=== PATIENT | female | born 1960 | race Caucasian/White ===

== ENCOUNTER 2023-10-11 12:45 | Inpatient (IN) | payer OTHER ==
[2023-10-11 13:37] VITALS: BMI 18.8
[2023-10-11] MEDS ORDERED: POLYETHYLENE GLYCOL (HEALTHYLAX) 3350 17 GM PACKET PO PRN (13:56)
[2023-10-11] MEDS ORDERED: methaDONE HCL 10 MG TABLET (FOR DETOX USE ONLY) PO ONE (13:56)
[2023-10-11] MEDS ORDERED: BISMUTH SUBSALICYLATE 524 MG/30 ML PO PRN (13:56)
[2023-10-11] MEDS ORDERED: NALOXONE HCL 0.4 MG/ML VIAL IM PRN (13:56)
[2023-10-11] MEDS ORDERED: MAG HYDROX/AL HYDROX/SIMETH 30 ML UNIT-DOSE CUP PO PRN (13:56)
[2023-10-11] MEDS ORDERED: BENZONATATE 200 MG CAPSULE PO PRN (13:56)
[2023-10-11] MEDS ORDERED: MAGNESIUM HYDROX 2400MG/30ML ORAL SUSPENSION 30 ML CUP PO PRN (13:56)
[2023-10-11] MEDS ORDERED: IBUPROFEN 400 MG TABLET (FP) PO PRN (13:56)
[2023-10-11] MEDS ORDERED: BENZOCAINE/MENTHOL (CHLORASEPTIC ) LOZENGE MM PRN (13:56)
[2023-10-11] MEDS ORDERED: NALOXONE HCL (KLOXXADO) 8 MG SPRAY NS PRN (13:56)
[2023-10-11] MEDS ORDERED: guaiFENesin 600 MG TABLET.ER (FP) PO PRN (13:56)
[2023-10-11] MEDS ORDERED: DICYCLOMINE HCL 10 MG CAPSULE PO PRN (13:56)
[2023-10-11] MEDS ORDERED: methaDONE HCL 10 MG TABLET (FOR DETOX USE ONLY) ONE (14:07)
[2023-10-11] MEDS: ACETAMINOPHEN 325 MG TABLET (FP) PO PRN (20:23)
[2023-10-11] MEDS: cloNIDine HCL 0.1 MG TABLET PO PRN (20:23)
[2023-10-11] MEDS: MELATONIN 5 MG TABLETS PO SCH (22:11)
[2023-10-11] MEDS: THIAMINE HCL 100 MG TABLET (FP) PO SCH (22:12)
[2023-10-12] MEDS: IBUPROFEN 600 MG TABLET (FP) PO PRN ×2 (06:42→18:57)
[2023-10-12] MEDS: cloNIDine HCL 0.1 MG TABLET PO PRN ×3 (06:58→18:57)
[2023-10-12] MEDS: PRENATAL VITAMINS W/ FOLIC ACID TABLET (FP) PO SCH (09:21)
[2023-10-12 10:50] LABS: HEMATOCRIT 42.4 % (32.4-45.2); HEMOGLOBIN 14.5 GM/dL (10.7-15.3); MCH 30.3 pg (25.7-33.7); MCHC 34.3 g/dl (32.0-36.0); MEAN CELL VOLUME 88.4 fl (80-96); MEAN PLT VOLUME 7.4 fl (7.5-11.1); PLATELET COUNT 237 10^3/uL (134-434); RBC 4.79 M/mm3 (3.60-5.2); RDW 12.9 % (11.6-15.6)
[2023-10-12 10:56] LABS: CHLORIDE 98 mmol/L (98-107); POTASSIUM 4.3 mmol/L (3.5-5.1); SODIUM 133 mmol/L (136-145)
[2023-10-12 11:07] LABS: BLOOD UREA NITROGEN 13.3 mg/dL (7-18); CALCIUM 9.6 mg/dL (8.5-10.1)
[2023-10-12 11:08] LABS: ALBUMIN 3.9 g/dl (3.4-5.0); ANION GAP 8 mmol/L (4-13); CO2 26 mmol/L (21-32); GLUCOSE,RANDOM 157 mg/dL (74-106)
[2023-10-12 11:10] LABS: SGPT/ALT 14 U/L (13-61)
[2023-10-12 11:11] LABS: CREATININE 0.8 mg/dL (0.55-1.3); SGOT/AST 28 U/L (15-37)
[2023-10-12 11:12] LABS: BILIRUBIN,TOTAL 0.7 mg/dL (0.2-1); TOT PROT 9.1 g/dl (6.4-8.2)
[2023-10-12 11:13] LABS: ALK PHOS 80 U/L (45-117)
[2023-10-12] MEDS: THIAMINE HCL 100 MG TABLET (FP) PO SCH (22:15)
[2023-10-12] MEDS: MELATONIN 5 MG TABLETS PO SCH (22:15)
[2023-10-12] MEDS: BACLOFEN 10 MG TABLET (FP) PO PRN (22:15)
[2023-10-12] MEDS ORDERED: traZODone HCL 50 MG TABLET (FP) PO ONE (22:53)
[2023-10-13] MEDS: cloNIDine HCL 0.1 MG TABLET PO PRN ×2 (06:12→22:13)
[2023-10-13] MEDS: BACLOFEN 10 MG TABLET (FP) PO PRN (06:12)
[2023-10-13] MEDS: PRENATAL VITAMINS W/ FOLIC ACID TABLET (FP) PO SCH (09:24)
[2023-10-13] MEDS ORDERED: methaDONE HCL 10 MG TABLET (FOR DETOX USE ONLY) PO ONE (10:00)
[2023-10-13] MEDS ORDERED: NICOTINE POLACRILEX 2 MG GUM BUC PRN (11:43)
[2023-10-13] MEDS: IBUPROFEN 600 MG TABLET (FP) PO PRN ×2 (13:04→19:56)
[2023-10-13] MEDS: diazePAM 5 MG TABLET PO PRN ×2 (14:37→19:56)
[2023-10-13] MEDS: THIAMINE HCL 100 MG TABLET (FP) PO SCH (22:12)
[2023-10-13] MEDS: traZODone HCL 50 MG TABLET (FP) PO SCH (22:12)
[2023-10-13] MEDS: MELATONIN 5 MG TABLETS PO SCH (22:12)
[2023-10-14] MEDS: ACETAMINOPHEN 325 MG TABLET (FP) PO PRN (09:25)
[2023-10-14] MEDS: diazePAM 5 MG TABLET PO PRN ×2 (10:08→18:37)
[2023-10-14] MEDS: BACLOFEN 10 MG TABLET (FP) PO PRN (10:09)
[2023-10-14] MEDS: PRENATAL VITAMINS W/ FOLIC ACID TABLET (FP) PO SCH (10:09)
[2023-10-14] MEDS: MELATONIN 5 MG TABLETS PO SCH (22:02)
[2023-10-14] MEDS: THIAMINE HCL 100 MG TABLET (FP) PO SCH (22:03)
[2023-10-14] MEDS: traZODone HCL 50 MG TABLET (FP) PO SCH (22:03)
[2023-10-15] MEDS: IBUPROFEN 600 MG TABLET (FP) PO PRN (07:06)
[2023-10-15] MEDS: BACLOFEN 10 MG TABLET (FP) PO PRN (07:09)
[2023-10-15] MEDS: ACETAMINOPHEN 325 MG TABLET (FP) PO PRN (08:37)
[2023-10-15] MEDS ORDERED: methaDONE HCL 10 MG TABLET (FOR DETOX USE ONLY) PO ONE (10:00)
[2023-10-15] MEDS: diazePAM 5 MG TABLET PO PRN ×3 (10:23→21:39)
[2023-10-15] MEDS: PRENATAL VITAMINS W/ FOLIC ACID TABLET (FP) PO SCH (10:23)
[2023-10-15] MEDS: NICOTINE 21 MG/24 HOURS TOPICAL PATCH TD SCH (15:13)
[2023-10-15] MEDS ORDERED: cloNIDine HCL 0.1 MG TABLET PO PRN (19:14)
[2023-10-15] MEDS ORDERED: ASPIRIN 81 MG CHEWABLE TABLETS PO ONE (19:15)
[2023-10-15] MEDS: MELATONIN 5 MG TABLETS PO SCH (21:39)
[2023-10-15] MEDS: traZODone HCL 50 MG TABLET (FP) PO SCH (21:39)
[2023-10-15] MEDS: THIAMINE HCL 100 MG TABLET (FP) PO SCH (21:39)
[2023-10-16 09:14] VITALS: BP 116/76; PULSE 78; RESP 18; TEMP 97.8
[2023-10-16] MEDS: PRENATAL VITAMINS W/ FOLIC ACID TABLET (FP) PO SCH (09:35)
[2023-10-16] MEDS: diazePAM 5 MG TABLET PO PRN (09:35)
[2023-10-16] MEDS: NICOTINE 21 MG/24 HOURS TOPICAL PATCH TD SCH (09:35)
== END 2023-10-16 12:57 | disposition other institution (70) | DRG 773 ==
LOC: YASAS 12:45 → Y3N 14:53
PROVIDERS: ADMIT Allergy & Immunology; ATTEND Allergy & Immunology
PROC: HZ2ZZZZ Detoxification Services for Substance Abuse Treatment (ICD-10-PCS; principal; 2023-10-11)
DX: F11.23 Opioid dependence with withdrawal (principal); F14.20 Cocaine dependence, uncomplicated; F10.20 Alcohol dependence, uncomplicated; F17.210 Nicotine dependence, cigarettes, uncomplicated; F31.9 Bipolar disorder, unspecified; F19.24 Other psychoactive substance dependence with psychoactive substance-induced mood disorder; F41.9 Anxiety disorder, unspecified; B20 Human immunodeficiency virus [HIV] disease; G47.00 Insomnia, unspecified; I10 Essential (primary) hypertension; R07.9 Chest pain, unspecified; Z62.810 Personal history of physical and sexual abuse in childhood; Z63.8 Other specified problems related to primary support group; Z56.0 Unemployment, unspecified
CPT/HCPCS: 36415; 80053; 80307; 85027; 86780; 87635; 93005; 93010; J0475

== ENCOUNTER 2023-10-16 13:03 | Inpatient (IN) | payer OTHER ==
[2023-10-16] MEDS ORDERED: BENZONATATE 200 MG CAPSULE PO PRN (14:40)
[2023-10-16] MEDS ORDERED: guaiFENesin 600 MG TABLET.ER (FP) PO PRN (14:40)
[2023-10-16] MEDS ORDERED: AMMONIUM LACTATE 12% LOTION 225 GM BOTTLE TP PRN (14:40)
[2023-10-16] MEDS ORDERED: NICOTINE POLACRILEX 4 MG GUM BUC PRN (14:40)
[2023-10-16] MEDS ORDERED: BENZOCAINE/MENTHOL (CHLORASEPTIC ) LOZENGE MM PRN (14:40)
[2023-10-16] MEDS ORDERED: POLYETHYLENE GLYCOL (HEALTHYLAX) 3350 17 GM PACKET PO PRN (14:40)
[2023-10-16] MEDS ORDERED: NICOTINE 14 MG/24 HOURS TOPICAL PATCH TD PRN (14:40)
[2023-10-16] MEDS ORDERED: MAGNESIUM HYDROX 2400MG/30ML ORAL SUSPENSION 30 ML CUP PO PRN (14:40)
[2023-10-16] MEDS ORDERED: LOPERAMIDE HCL 2 MG CAPSULE PO PRN (14:40)
[2023-10-16] MEDS ORDERED: NALOXONE HCL 0.4 MG/ML VIAL IVPUSH PRN (14:40)
[2023-10-16] MEDS ORDERED: NALOXONE HCL (KLOXXADO) 8 MG SPRAY NS PRN (14:40)
[2023-10-16] MEDS: METHOCARBAMOL 500 MG TABLET PO PRN (15:33)
[2023-10-16] MEDS: hydrOXYzine PAMOATE 25 MG CAPSULE (FP) PO PRN (15:34)
[2023-10-16] MEDS ORDERED: ASPIRIN 81 MG CHEWABLE TABLETS PO ONE (19:13)
[2023-10-16] MEDS ORDERED: traZODone HCL 50 MG TABLET (FP) PO SCH (22:00)
[2023-10-16] MEDS ORDERED: MELATONIN 5 MG TABLETS PO SCH (22:00)
[2023-10-16] MEDS: THIAMINE HCL 100 MG TABLET (FP) PO SCH (22:07)
[2023-10-17] MEDS: METHOCARBAMOL 500 MG TABLET PO PRN (01:16)
[2023-10-17] MEDS: hydrOXYzine PAMOATE 25 MG CAPSULE (FP) PO PRN ×3 (01:16→17:42)
[2023-10-17] MEDS: PRENATAL VITAMINS W/ FOLIC ACID TABLET (FP) PO SCH (09:44)
[2023-10-17] MEDS: IBUPROFEN 600 MG TABLET (FP) PO PRN (10:09)
[2023-10-17] MEDS: MAG HYDROX/AL HYDROX/SIMETH 30 ML UNIT-DOSE CUP PO PRN (14:47)
[2023-10-17] MEDS: IBUPROFEN 400 MG TABLET (FP) PO PRN (17:42)
[2023-10-17] MEDS: traZODone HCL 50 MG TABLET (FP) PO SCH (21:13)
[2023-10-17] MEDS: THIAMINE HCL 100 MG TABLET (FP) PO SCH (21:13)
[2023-10-18] MEDS: hydrOXYzine PAMOATE 25 MG CAPSULE (FP) PO PRN (07:07)
[2023-10-18] MEDS: METHOCARBAMOL 500 MG TABLET PO PRN ×3 (07:07→21:06)
[2023-10-18] MEDS: MAG HYDROX/AL HYDROX/SIMETH 30 ML UNIT-DOSE CUP PO PRN ×2 (07:07→15:39)
[2023-10-18] MEDS: IBUPROFEN 600 MG TABLET (FP) PO PRN (09:54)
[2023-10-18] MEDS: PRENATAL VITAMINS W/ FOLIC ACID TABLET (FP) PO SCH (10:01)
[2023-10-18] MEDS: THIAMINE HCL 100 MG TABLET (FP) PO SCH (21:06)
[2023-10-18] MEDS: traZODone HCL 50 MG TABLET (FP) PO SCH (21:06)
[2023-10-19] MEDS: hydrOXYzine PAMOATE 25 MG CAPSULE (FP) PO PRN (06:09)
[2023-10-19] MEDS: ACETAMINOPHEN 325 MG TABLET (FP) PO PRN ×2 (06:09→20:54)
[2023-10-19] MEDS: PRENATAL VITAMINS W/ FOLIC ACID TABLET (FP) PO SCH (09:49)
[2023-10-19] MEDS: METHOCARBAMOL 500 MG TABLET PO PRN ×2 (09:50→19:34)
[2023-10-19] MEDS: MAG HYDROX/AL HYDROX/SIMETH 30 ML UNIT-DOSE CUP PO PRN (19:34)
[2023-10-19] MEDS: THIAMINE HCL 100 MG TABLET (FP) PO SCH (21:00)
[2023-10-19] MEDS: traZODone HCL 50 MG TABLET (FP) PO SCH (21:00)
[2023-10-20] MEDS: hydrOXYzine PAMOATE 25 MG CAPSULE (FP) PO PRN ×2 (00:50→10:01)
[2023-10-20] MEDS: ACETAMINOPHEN 325 MG TABLET (FP) PO PRN (06:39)
[2023-10-20] MEDS: PRENATAL VITAMINS W/ FOLIC ACID TABLET (FP) PO SCH (10:00)
[2023-10-20] MEDS: METHOCARBAMOL 500 MG TABLET PO PRN ×2 (10:01→17:24)
[2023-10-20] MEDS: MAG HYDROX/AL HYDROX/SIMETH 30 ML UNIT-DOSE CUP PO PRN (13:52)
[2023-10-20] MEDS: traZODone HCL 50 MG TABLET (FP) PO SCH (21:15)
[2023-10-20] MEDS: THIAMINE HCL 100 MG TABLET (FP) PO SCH (21:15)
[2023-10-20] MEDS: cloNIDine HCL 0.1 MG TABLET PO PRN (21:23)
[2023-10-21] MEDS: METHOCARBAMOL 500 MG TABLET PO PRN ×2 (05:58→12:14)
[2023-10-21] MEDS: MAG HYDROX/AL HYDROX/SIMETH 30 ML UNIT-DOSE CUP PO PRN ×2 (05:58→18:50)
[2023-10-21] MEDS: hydrOXYzine PAMOATE 25 MG CAPSULE (FP) PO PRN ×2 (09:08→17:04)
[2023-10-21] MEDS: PRENATAL VITAMINS W/ FOLIC ACID TABLET (FP) PO SCH (10:08)
[2023-10-21] MEDS: ACETAMINOPHEN 325 MG TABLET (FP) PO PRN (10:10)
[2023-10-21] MEDS: IBUPROFEN 600 MG TABLET (FP) PO PRN (13:41)
[2023-10-21] MEDS: cloNIDine HCL 0.1 MG TABLET PO PRN (21:24)
[2023-10-21] MEDS: THIAMINE HCL 100 MG TABLET (FP) PO SCH (21:24)
[2023-10-21] MEDS: traZODone HCL 50 MG TABLET (FP) PO SCH (21:24)
[2023-10-22] MEDS: METHOCARBAMOL 500 MG TABLET PO PRN ×2 (03:09→14:26)
[2023-10-22] MEDS: ACETAMINOPHEN 325 MG TABLET (FP) PO PRN ×4 (06:28→23:35)
[2023-10-22] MEDS: MAG HYDROX/AL HYDROX/SIMETH 30 ML UNIT-DOSE CUP PO PRN ×2 (06:28→16:56)
[2023-10-22] MEDS: PRENATAL VITAMINS W/ FOLIC ACID TABLET (FP) PO SCH (10:12)
[2023-10-22] MEDS: ARTIFICIAL TEARS OPHTHALMIC DROPS OU PRN (10:12)
[2023-10-22] MEDS: IBUPROFEN 400 MG TABLET (FP) PO PRN (10:15)
[2023-10-22] MEDS: cloNIDine HCL 0.1 MG TABLET PO PRN ×2 (10:15→19:20)
[2023-10-22] MEDS ORDERED: hydrOXYzine PAMOATE 25 MG CAPSULE (FP) PO PRN ×2 (14:32→14:46)
[2023-10-22] MEDS: hydrOXYzine PAMOATE 25 MG CAPSULE (FP) PO PRN (15:09)
[2023-10-22] MEDS: traZODone HCL 50 MG TABLET (FP) PO SCH (21:26)
[2023-10-22] MEDS: THIAMINE HCL 100 MG TABLET (FP) PO SCH (21:26)
[2023-10-23] MEDS: hydrOXYzine PAMOATE 25 MG CAPSULE (FP) PO PRN ×2 (00:46→09:53)
[2023-10-23] MEDS: cloNIDine HCL 0.1 MG TABLET PO PRN ×2 (06:11→18:51)
[2023-10-23] MEDS: IBUPROFEN 600 MG TABLET (FP) PO PRN (06:11)
[2023-10-23] MEDS: ARTIFICIAL TEARS OPHTHALMIC DROPS OU PRN (09:52)
[2023-10-23] MEDS: PRENATAL VITAMINS W/ FOLIC ACID TABLET (FP) PO SCH (09:53)
[2023-10-23] MEDS: ACETAMINOPHEN 325 MG TABLET (FP) PO PRN ×2 (09:54→21:18)
[2023-10-23] MEDS: MAG HYDROX/AL HYDROX/SIMETH 30 ML UNIT-DOSE CUP PO PRN ×2 (12:06→21:24)
[2023-10-23] MEDS: LIDOCAINE 4% PATCH TP SCH (13:14)
[2023-10-23] MEDS: THIAMINE HCL 100 MG TABLET (FP) PO SCH (21:16)
[2023-10-23] MEDS: traZODone HCL 50 MG TABLET (FP) PO SCH (21:16)
[2023-10-23] MEDS: LIDOCAINE PATCH REMOVAL MC SCH (23:07)
[2023-10-24] MEDS: hydrOXYzine PAMOATE 25 MG CAPSULE (FP) PO PRN ×3 (03:09→17:49)
[2023-10-24] MEDS: MAG HYDROX/AL HYDROX/SIMETH 30 ML UNIT-DOSE CUP PO PRN (06:10)
[2023-10-24] MEDS: IBUPROFEN 600 MG TABLET (FP) PO PRN (06:10)
[2023-10-24] MEDS: PRENATAL VITAMINS W/ FOLIC ACID TABLET (FP) PO SCH (10:16)
[2023-10-24] MEDS: LIDOCAINE 4% PATCH TP SCH (10:16)
[2023-10-24] MEDS: ARTIFICIAL TEARS OPHTHALMIC DROPS OU PRN (14:03)
[2023-10-24] MEDS: ACETAMINOPHEN 325 MG TABLET (FP) PO PRN ×2 (14:06→21:11)
[2023-10-24] MEDS: traZODone HCL 50 MG TABLET (FP) PO SCH (21:08)
[2023-10-24] MEDS: THIAMINE HCL 100 MG TABLET (FP) PO SCH (21:08)
[2023-10-24] MEDS: LIDOCAINE PATCH REMOVAL MC SCH (21:09)
[2023-10-25] MEDS: ACETAMINOPHEN 325 MG TABLET (FP) PO PRN ×2 (06:05→18:20)
[2023-10-25] MEDS: hydrOXYzine PAMOATE 25 MG CAPSULE (FP) PO PRN ×2 (06:06→18:20)
[2023-10-25] MEDS: MAG HYDROX/AL HYDROX/SIMETH 30 ML UNIT-DOSE CUP PO PRN (06:08)
[2023-10-25] MEDS: LIDOCAINE 4% PATCH TP SCH (10:04)
[2023-10-25] MEDS: PRENATAL VITAMINS W/ FOLIC ACID TABLET (FP) PO SCH (10:05)
[2023-10-25] MEDS: LIDOCAINE PATCH REMOVAL MC SCH (21:26)
[2023-10-25] MEDS: THIAMINE HCL 100 MG TABLET (FP) PO SCH (21:26)
[2023-10-25] MEDS: traZODone HCL 50 MG TABLET (FP) PO SCH (21:26)
[2023-10-26] MEDS: hydrOXYzine PAMOATE 25 MG CAPSULE (FP) PO PRN ×3 (04:06→14:46)
[2023-10-26] MEDS: ACETAMINOPHEN 325 MG TABLET (FP) PO PRN (07:08)
[2023-10-26] MEDS: MAG HYDROX/AL HYDROX/SIMETH 30 ML UNIT-DOSE CUP PO PRN (07:09)
[2023-10-26] MEDS: LIDOCAINE 4% PATCH TP SCH (09:56)
[2023-10-26] MEDS: PRENATAL VITAMINS W/ FOLIC ACID TABLET (FP) PO SCH (09:56)
[2023-10-26] MEDS: ARTIFICIAL TEARS OPHTHALMIC DROPS OU PRN (09:59)
[2023-10-26] MEDS: BACLOFEN 10 MG TABLET (FP) PO SCH ×2 (14:46→21:31)
[2023-10-26] MEDS: LIDOCAINE PATCH REMOVAL MC SCH (21:31)
[2023-10-26] MEDS: THIAMINE HCL 100 MG TABLET (FP) PO SCH (21:31)
[2023-10-26] MEDS: traZODone HCL 50 MG TABLET (FP) PO SCH (21:31)
[2023-10-27] MEDS: hydrOXYzine PAMOATE 25 MG CAPSULE (FP) PO PRN (03:51)
[2023-10-27] MEDS: BACLOFEN 10 MG TABLET (FP) PO SCH ×3 (05:46→21:27)
[2023-10-27] MEDS: LIDOCAINE 4% PATCH TP SCH (09:51)
[2023-10-27] MEDS: PRENATAL VITAMINS W/ FOLIC ACID TABLET (FP) PO SCH (09:51)
[2023-10-27] MEDS: ARTIFICIAL TEARS OPHTHALMIC DROPS OU PRN (11:00)
[2023-10-27] MEDS: THIAMINE HCL 100 MG TABLET (FP) PO SCH (21:27)
[2023-10-27] MEDS: traZODone HCL 50 MG TABLET (FP) PO SCH (21:27)
[2023-10-27] MEDS: LIDOCAINE PATCH REMOVAL MC SCH (21:27)
[2023-10-28] MEDS: BACLOFEN 10 MG TABLET (FP) PO SCH ×3 (06:24→21:12)
[2023-10-28] MEDS: PRENATAL VITAMINS W/ FOLIC ACID TABLET (FP) PO SCH (10:09)
[2023-10-28] MEDS: LIDOCAINE 4% PATCH TP SCH (10:09)
[2023-10-28] MEDS: ARTIFICIAL TEARS OPHTHALMIC DROPS OU PRN (10:09)
[2023-10-28] MEDS: hydrOXYzine PAMOATE 25 MG CAPSULE (FP) PO PRN ×2 (10:13→21:14)
[2023-10-28] MEDS: METHYL SALICYLATE/MENTHOL OINT 30 GM TUBE TP SCH (20:12)
[2023-10-28] MEDS: THIAMINE HCL 100 MG TABLET (FP) PO SCH (21:12)
[2023-10-28] MEDS: LIDOCAINE PATCH REMOVAL MC SCH (21:13)
[2023-10-28] MEDS: traZODone HCL 50 MG TABLET (FP) PO SCH (21:13)
[2023-10-29] MEDS: BACLOFEN 10 MG TABLET (FP) PO SCH ×3 (06:42→21:28)
[2023-10-29 07:07] VITALS: RESP 18
[2023-10-29] MEDS: LIDOCAINE 4% PATCH TP SCH (10:16)
[2023-10-29] MEDS: ARTIFICIAL TEARS OPHTHALMIC DROPS OU PRN (10:17)
[2023-10-29] MEDS: PRENATAL VITAMINS W/ FOLIC ACID TABLET (FP) PO SCH (10:17)
[2023-10-29] MEDS: METHYL SALICYLATE/MENTHOL OINT 30 GM TUBE TP SCH (20:27)
[2023-10-29] MEDS: LIDOCAINE PATCH REMOVAL MC SCH (21:28)
[2023-10-29] MEDS: THIAMINE HCL 100 MG TABLET (FP) PO SCH (21:28)
[2023-10-29] MEDS: traZODone HCL 50 MG TABLET (FP) PO SCH (21:28)
[2023-10-29] MEDS ORDERED: P-EPHED 60MG/TRIPROLIDI 2.5MG TABLET PO PRN (23:45)
[2023-10-30] MEDS: BACLOFEN 10 MG TABLET (FP) PO SCH ×2 (06:11→13:59)
[2023-10-30 06:50] VITALS: BP 151/86; PULSE 93; TEMP 97.1
[2023-10-30] MEDS: LIDOCAINE 4% PATCH TP SCH (10:19)
[2023-10-30] MEDS: PRENATAL VITAMINS W/ FOLIC ACID TABLET (FP) PO SCH (10:19)
[2023-10-30] MEDS: ARTIFICIAL TEARS OPHTHALMIC DROPS OU PRN (10:19)
[2023-10-30] MEDS: hydrOXYzine PAMOATE 25 MG CAPSULE (FP) PO PRN (10:20)
== END 2023-10-30 14:15 | disposition home or self-care (01) | DRG 772 ==
LOC: YASAS 13:03 → Y5N 13:04
PROVIDERS: ADMIT Allergy & Immunology; ATTEND Psychiatry & Neurology Pain Medicine
PROC: HZ42ZZZ Group Counseling for Substance Abuse Treatment, Cognitive-Behavioral (ICD-10-PCS; principal; 2023-10-16)
DX: F11.20 Opioid dependence, uncomplicated (principal); F14.20 Cocaine dependence, uncomplicated; F10.10 Alcohol abuse, uncomplicated; F17.210 Nicotine dependence, cigarettes, uncomplicated; F41.9 Anxiety disorder, unspecified; U07.1 COVID-19; B20 Human immunodeficiency virus [HIV] disease; I10 Essential (primary) hypertension; G47.00 Insomnia, unspecified; M54.50 Low back pain, unspecified; R07.9 Chest pain, unspecified; R00.0 Tachycardia, unspecified
CPT/HCPCS: 36415; 82140; 86803; 87522; 87635; J0475

== ENCOUNTER 2023-10-16 19:46 | Emergency (ER) | payer OTHER ==
[2023-10-16 19:59] VITALS: RESP 16; BMI 26.5
[2023-10-16] MEDS ORDERED: ACETAMINOPHEN 1000 MG/100 ML BAG IVPB ONE (20:22)
[2023-10-16] MEDS ORDERED: ACETAMINOPHEN INJECTION 100 ML IVPB ONE (20:34)
[2023-10-16] MEDS ORDERED: traZODone HCL 50 MG TABLET (FP) PO ONE (20:47)
[2023-10-16 20:55] LABS: BASO % 1.4 % (0-2.0); EOS % 1.9 % (0-4.5); HEMATOCRIT 37.5 % (32.4-45.2); HEMOGLOBIN 12.7 GM/dL (10.7-15.3); LYMPH % 29.3 % (8-40); MCH 30.1 pg (25.7-33.7); MCHC 33.9 g/dl (32.0-36.0); MEAN CELL VOLUME 88.7 fl (80-96); NEUT % 53.4 % (42.8-82.8); PLATELET COUNT 208 10^3/uL (134-434); RBC 4.22 M/mm3 (3.60-5.2); RDW 13.1 % (11.6-15.6)
[2023-10-16 20:57] LABS: EPI CELLS 14 /uL (0-25.1); HYALINE CASTS 0 /uL (0-3.1); URINE APPEARANCE CLEAR; URINE BACTERIA 115 /uL (0-1359); URINE BILIRUBIN NEGATIVE (NEGATIVE); URINE COLOR YELLOW; URINE GLUCOSE (UA) NEGATIVE (NEGATIVE); URINE KETONE NEGATIVE (NEGATIVE); URINE LEUK ESTERASE 2+ (NEGATIVE); URINE NITRITE NEGATIVE (NEGATIVE); URINE PROTEIN NEGATIVE (NEGATIVE); URINE RBC 9 /uL (0-23.9); URINE UROBILINOGEN 0.2 mg/dL (0.2-1.0); URINE WBC 45 /uL (0-25.8)
[2023-10-16 20:59] LABS: INR 0.92 (0.83-1.09); PROTHROMBIN TIME (PATIENT) 10.7 SEC (9.7-13.0)
[2023-10-16] MEDS ORDERED: traZODone HCL 50 MG TABLET (FP) ONE (21:01)
[2023-10-16 21:02] LABS: ACTIVATED PTT 26.4 SECONDS (25.2-36.5)
[2023-10-16 21:17] LABS: POTASSIUM 4.3 mmol/L (3.5-5.1)
[2023-10-16 21:19] LABS: CALCIUM 9.3 mg/dL (8.5-10.1)
[2023-10-16 21:20] LABS: ALBUMIN 3.6 g/dl (3.4-5.0); BLOOD UREA NITROGEN 15.3 mg/dL (7-18); MAGNESIUM 2.5 mg/dL (1.8-2.4)
[2023-10-16 21:23] LABS: CREATININE 0.9 mg/dL (0.55-1.3)
[2023-10-16 21:24] LABS: BILIRUBIN,TOTAL 0.2 mg/dL (0.2-1)
[2023-10-16 21:25] LABS: TOT PROT 8.3 g/dl (6.4-8.2)
[2023-10-16 21:28] LABS: N-TERMINAL BNP 76.1 pg/ml (5-125)
[2023-10-16] MEDS ORDERED: MAG HYDROX/AL HYDROX/SIMETH 30 ML UNIT-DOSE CUP PO ONE (21:32)
[2023-10-16] MEDS ORDERED: FAMOTIDINE 20 MG/50 ML IVPB 20 MG/50 ML MG IVPB ONE (21:32)
[2023-10-16] MEDS ORDERED: FAMOTIDINE 20 MG TABLET ONE (21:46)
[2023-10-16] MEDS ORDERED: FAMOTIDINE 20 MG TABLET PO ONE (21:47)
[2023-10-16] MEDS ORDERED: MAG HYDROX/AL HYDROX/SIMETH 30 ML UNIT-DOSE CUP ONE (21:47)
[2023-10-16 23:27] VITALS: BP 136/76; PULSE 79; TEMP 97.8
== END 2023-10-16 23:29 | disposition home or self-care (01) ==
LOC: JER 19:46
PROC: 3E033NZ Introduction of Analgesics, Hypnotics, Sedatives into Peripheral Vein, Percutaneous Approach (ICD-10-PCS; principal; 2023-10-16)
DX: R07.9 Chest pain, unspecified (principal); R61 Generalized hyperhidrosis; Z20.822 Contact with and (suspected) exposure to COVID-19
CPT/HCPCS: 0241U-QW; 36415; 71045-TC-FY; 80053; 81003; 83735; 83880; 84100; 84484; 85025; 85610; 85730; 87086; 93005; 93010; 99285-25